=== PATIENT | female | born 1935 | race Caucasian/White ===

== ENCOUNTER → 2017-03-19 | Outpatient (CLI) | payer OTHER ==
[~2017-03-19] MED LIST: ACET-1256 PO; BALS1CAP2 PO; CHOL100010 PO; ENT3 PO; ESCI1TAB10 PO; GLUC10007 PO; MEMA10TA PO; METR0.754 TOP; MULTTAB58 PO; PRD/25 PO; SODI
== END | disposition home or self-care (01) ==
LOC: C.LABSPEC 10:22
PROVIDERS: ATTEND Nurse Practitioner
DX: R11.2 Nausea with vomiting, unspecified (principal)

== ENCOUNTER → 2017-05-14 | Outpatient (CLI) | payer OTHER ==
[2017-05-15 08:53] LABS: URINE APPEARANCE CLEAR (CLEAR); URINE BILIRUBIN NEG (NEG); URINE COLOR YELLOW; URINE EPITHELIAL CELL AUTO 0-5 /lpf (0-5); URINE NITRITE NEG (NEG); URINE PH 7.5 (4.5-7.5); URINE SPECIFIC GRAVITY 1.008 (1.000-1.030); UROBILINOGEN NEG (NEG)
[2017-05-15 08:55] LABS: MANUAL MICROSCOPIC REQUIRED? NO; REVIEW REQ? NO
== END | disposition home or self-care (01) ==
LOC: C.LABSPEC 10:00
PROVIDERS: ATTEND Nurse Practitioner
DX: R82.99 Other abnormal findings in urine (principal)

== ENCOUNTER 2018-01-26 19:13 | Emergency (ER) | payer OTHER ==
[2018-01-26 19:26] VITALS: TEMP 36.8
[2018-01-26] MEDS ORDERED: SODIUM CHLORIDE 0.9% 250ML 250 ML IV STA (19:28)
[2018-01-26] MEDS ORDERED: ONDANSETRON INJ 2 MG/ML 2 ML VIAL IV STA (19:28)
[2018-01-26] MEDS ORDERED: SODIUM CHLORIDE 0.9% 1000ML 1,000 ML IV STA (19:28)
--- NOTE | 2018-01-26 19:29 | EMERGENCY ROOM VISIT NOTE ---
History Report prepared by Artis: Adonay Hu Under the Supervision of: Dr. Rain Auguste M.D. First contact with patient: 19:19 Chief Complaint: VOMITING Stated Complaint: NAUSEA, VOMITING, DIARRHEA History of Present Illness The patient is an 82 year old female who presents to the Emergency Room with complaints of intermittent vomiting beginning a few weeks ago. Nursing staff states the patient came here from [facility]. They report the patient has had intermittent nausea, ? report of vomiting and diarrhea as well. Nursing staff notes the patient would not take her medications this morning. They state the patient has a history of dementia, ulcerative colitis, and UTIs. Per , he was notified of med administration difficulties and diarrhea today. No r/o vomiting to his knowledge. HPI is limited secondary to the patient's history of dementia. Source of History: nursing staff History Limited By: dementia Review of Systems ROS is limited secondary to the patient's history of dementia. Past Medical & Surgical Medical Problems: (1) Chronic diarrhea of unknown origin (2) Colonoscopy (3) Dementia (4) Gastroesophageal reflux disease (5) Osteoporosis (6) Stomach problems (7) TUBAL LIGATION STATUS Family History Cancer Heart disease Social History Smoking Status: Unknown if Ever Smoked Alcohol Use: none Drug Use: none Marital Status: Housing Status: lives with family Occupation Status: retired Current/Historical Medications Scheduled Balsalazide Disodium (Colazal), 2,250 MG PO TID Budesonide (Entocort Ec), 3 MG PO TID Calcium Carbonate-Vitamin D (Calcium + D), 1 TAB PO DAILY Cholecalciferol (Vitamin D), 1,000 UNIT PO QAM Escitalopram Oxalate (Lexapro), 20 MG PO QAM Glucosamine Sulfate (Glucosamine), 1,500 MG PO QAM Memantine Hcl (Namenda), 10 MG PO BID Metronidazole (Topical) (Metrocream), 1 APPLN TOP DAILY Multiple Vitamin (Multivitamin), 1 TAB PO DAILY Prednisone (Prednisone), 2.5 MG PO DAILY Sodium Fluoride-Potassium Nitr (Prevident 5000 Sensitive), 1 APPLN BID Tramadol (Ultram), 50 MG PO BID Scheduled PRN Acetaminophen (Tylenol), 1,000 MG PO Q4H PRN for Pain Ondansetron Hcl (Zofran), 4 MG PO Q6H PRN for Nausea Allergies Coded Allergies: Ciprofloxacin (Verified Allergy, Unknown, ., 08/16/16) Physical Exam Vital Signs Date Time Temp Pulse Resp B/P (MAP) Pulse Ox O2 Delivery O2 Flow Rate FiO2 01/26/18 23:50 78 18 92 01/26/18 22:10 93 Oxymask 3.0 01/26/18 22:07 69 20 131/55 86 Room Air 01/26/18 21:26 71 01/26/18 21:23 73 18 129/59 94 Room Air 01/26/18 19:26 36.8 74 20 143/71 93 Room Air Physical Exam Vital signs reviewed. General: Elderly, chronically ill-appearing 82 year old female, in no significant distress. HEENT: No scleral icterus, PERRLA, neck supple. Atraumatic. Cardiovascular: Regular rate and rhythm, no extra sounds. Pulmonary: Clear to auscultation bilaterally, normal work of breathing. Abdomen: Soft, nontender, nondistended, positive bowel sounds. Musculoskeletal: Atraumatic, no peripheral edema. Neurologic: Patient awake, speech is incoherent, minimally compliant with exam. Skin: Warm, dry, no rash Medical Decision & Procedures ER Provider Diagnostic Interpretation: Radiology results as stated below per my review and radiologist interpretation: CHEST ONE VIEW PORTABLE CLINICAL HISTORY: vomiting, diarrhea COMPARISON STUDY: Chest radiograph August 16, 2016. FINDINGS: Apparent hazy left basilar opacity is likely artifactual. This likely reflects a hypoventilatory study. No lobar consolidation is present and there is no evidence for pulmonary edema. Moderate enlargement of the cardiac silhouette is noted. IMPRESSION: Mild left basilar opacity. Artifact is favored. Electronically signed by: Ezio Fitch M.D. 01/26/2018 7:48 PM Dictated Date/Time: 01/26/2018 7:[address] OF THE ABDOMEN AND PELVIS WITH CONTRAST CLINICAL HISTORY: Ulcerative colitis. Vomiting and diarrhea. COMPARISON STUDY: Right upper quadrant ultrasound June 18, 2010. TECHNIQUE: Following IV administration of 90 mL of Optiray-320, axial images of the abdomen and pelvis were obtained from the lung bases to the proximal femurs. Images were reviewed in the axial, sagittal, and coronal planes. IV contrast was administered without complication. A dose lowering technique was utilized adhering to the principles of ALARA. CT DOSE: 717.48 mGy.cm FINDINGS: Visualized portions of the lower chest demonstrate moderate cardiomegaly and a moderate sized hiatal hernia. The liver, spleen, adrenal glands, pancreas and right kidney are unremarkable. There is a suspected 7 mm cyst within the upper pole of the left kidney. There is no peripancreatic or pericholecystic infiltration. There is no biliary or pancreatic ductal dilatation. Colonic diverticulosis is noted without evidence for acute diverticulitis. Sensitivity for detection mucosal lesions is diminished given CT technique. There is no lymphadenopathy. No suspicious osseous lesions are present. IMPRESSION: 1. No acute process within the abdomen or pelvis. 2. Chronic diverticulosis without evidence for acute diverticulitis. 3. Hiatal hernia. Electronically signed by: Ezio Fitch M.D. 01/26/2018 9:17 PM Dictated Date/Time: 01/26/2018 9:08 PM Laboratory Results 01/26/18 19:50 Red Blood Count 4.44, Mean Corpuscular Volume 95.7, Mean Corpuscular Hemoglobin 30.6, Mean Corpuscular Hemoglobin Concent 32.0, Mean Platelet Volume 11.7, Neutrophils (%) (Auto) 60.6, Lymphocytes (%) (Auto) 32.9, Monocytes (%) (Auto) 6.3, Eosinophils (%) (Auto) 0.0, Basophils (%) (Auto) 0.0, Neutrophils # (Auto) 2.60, Lymphocytes # (Auto) 1.41, Monocytes # (Auto) 0.27, Eosinophils # (Auto) 0.00, Basophils # (Auto) 0.00 01/26/18 19:50 Test 01/26/18 19:50 01/26/18 20:47 White Blood Count 4.29 K/uL (4.8-10.8) Red Blood Count 4.44 M/uL (4.2-5.4) Hemoglobin 13.6 g/dL (12.0-16.0) Hematocrit 42.5 % (37-47) Mean Corpuscular Volume 95.7 fL (80-100) Mean Corpuscular Hemoglobin 30.6 pg (25-34) Mean Corpuscular Hemoglobin Concent 32.0 g/dl (32-36) Platelet Count 152 K/uL (130-400) Mean Platelet Volume 11.7 fL (7.4-10.4) Neutrophils (%) (Auto) 60.6 % Lymphocytes (%) (Auto) 32.9 % Monocytes (%) (Auto) 6.3 % Eosinophils (%) (Auto) 0.0 % Basophils (%) (Auto) 0.0 % Neutrophils # (Auto) 2.60 K/uL (1.4-6.5) Lymphocytes # (Auto) 1.41 K/uL (1.2-3.4) Monocytes # (Auto) 0.27 K/uL (0.11-0.59) Eosinophils # (Auto) 0.00 K/uL (0-0.5) Basophils # (Auto) 0.00 K/uL (0-0.2) RDW Standard Deviation 51.0 fL (36.4-46.3) RDW Coefficient of Variation 14.3 % (11.5-14.5) Immature Granulocyte % (Auto) 0.2 % Immature Granulocyte # (Auto) 0.01 K/uL (0.00-0.02) Nucleated RBC Absolute Count (auto) 0.03 K/uL (0-0) Nucleated Red Blood Cells % 0.7 % Anion Gap 3.0 mmol/L (3-11) Estimated GFR () 84.1 Estimated GFR (Non- 72.5 BUN/Creatinine Ratio 15.0 (10-20) Calcium Level 8.5 mg/dl (8.5-10.1) Magnesium Level 2.2 mg/dl (1.8-2.4) Total Bilirubin 0.6 mg/dl (0.2-1) Direct Bilirubin 0.1 mg/dl (0-0.2) Aspartate Amino Transf (AST/SGOT) 30 U/L (15-37) Alanine Aminotransferase (ALT/SGPT) 18 U/L (12-78) Alkaline Phosphatase 73 U/L (45-117) Total Protein 6.6 gm/dl (6.4-8.2) Albumin 2.8 gm/dl (3.4-5.0) Lipase 223 U/L (73-393) Urine Color DK YELLOW Urine Appearance CLOUDY (CLEAR) Urine pH 5.5 (4.5-7.5) Urine Specific [place] 1.035 (1.000-1.030) Urine Protein TRACE (NEG) Urine Glucose (UA) NEG (NEG) Urine Ketones TRACE (NEG) Urine Occult Blood NEG (NEG) Urine Nitrite NEG (NEG) Urine Bilirubin NEG (NEG) Urine Urobilinogen NEG (NEG) Urine Leukocyte Esterase SMALL (NEG) Urine WBC (Auto) >30 /hpf (0-5) Urine RBC (Auto) 5-10 /hpf (0-4) Urine Hyaline Casts (Auto) 10-30 /lpf (0-5) Urine Epithelial Cells (Auto) 20-30 /lpf (0-5) Urine Bacteria (Auto) 3+ (NEG) Urine Mucus PRESENT (NONE PRSENT) Laboratory results per my review. Medications Administered Medications (Trade) Dose Ordered Sig/Chivo Route Start Time Stop Time Status Last Admin Dose Admin Sodium Chloride 250 ml @ 999 mls/hr Q16M STAT IV 01/26/18 19:28 01/26/18 19:43 DC 01/26/18 20:00 999 MLS/HR Sodium Chloride 1,000 ml @ 125 mls/hr Q8H STAT IV 01/26/18 19:28 01/27/18 00:49 DC 01/26/18 20:00 125 MLS/HR Ondansetron HCl (Zofran Inj) 4 mg NOW STAT IV 01/26/18 19:28 01/26/18 19:31 DC 01/26/18 20:05 4 MG Ceftriaxone Sodium (Rocephin Inj) 1 gm NOW STAT IV 01/26/18 21:41 01/26/18 21:42 DC 01/26/18 22:06 1 GM ED Course 1924: Past medical records reviewed. The patient was evaluated in room B11B. A complete history and physical examination was performed. 1927: Ordered Ondansetron HCl 4mg IV, Sodium Chloride 1000 ml @ 125 mls/hr IV, Sodium Chloride 250 ml @ 999 mls/hr IV 2007: I discussed the patient's case with the at bedside. He states Dr. Eaton has had the patient on multiple medications for ulcerative colitis and the nurses have not been making her take the medication. He denies vomiting and notes she has had diarrhea. 2140: Ordered Ceftriaxone Sodium 1gm IV 2253: Upon reevaluation, the patient appeared to have improvement of her symptoms. I discussed findings with the . He verbalized agreement of the treatment plan. The patient was discharged to [facility]. Medical Decision The patient is an 82 year old female who presents to the ED with complaints of vomiting. Differentials include exacerbation of UC, C-diff colitis, viral illness, medication noncompliant, GI bleed, and food borne illness. This patient was evaluated and appeared to be in no significant distress. Patient has advanced dementia and is difficult to obtain history from. Nursing reports from [facility] complaining of vomiting and diarrhea, denies any vomiting to his knowledge. Patient apparently has not been taking her medications for UC. Has been states she has had significant difficulties with ulcerative colitis flares in the past. The patient was in the emergency department for several hours. There is no stool sample obtained. She is normally incontinent and she was checked several times. A catheterized urine specimen is indicative of infection, which is not surprising given her diarrhea. Laboratory work reveals a mild leukopenia and hypokalemia. Patient was given 1 g of IV ceftriaxone. She did receive IV hydration. Recommendations for further IM ceftriaxone were given to the custodial staff as the patient has not been compliant with oral medication administration. A stool sample should be obtained when able and sent for culture/C. difficile. Patient will be discharged back to [facility] for further care. Transportation arrangements have been made by case management. is aware of the plan and agrees. Medication Reconcilliation Current Medication List: was personally reviewed by me Blood Pressure Screening Patient's blood pressure: Normal blood pressure Blood pressure disposition: Did not require urgent referral Impression Primary Impression: UTI (urinary tract infection) Additional Impression: Diarrhea Scribe Attestation The scribe's documentation has been prepared under my direction and personally reviewed by me in its entirety. I confirm that the note above accurately reflects all work, treatment, procedures, and medical decision making performed by me. Departure Information Dispostion Other ([facility]) Referrals Alfreda Logan, C.R.N.P. (PCP) Forms HOME CARE DOCUMENTATION FORM, IMPORTANT VISIT INFORMATION Patient Instructions My [facility] Additional Instructions Diagnosis: UTI, diarrhea Encourage daily medications. Encourage oral fluids. Pt was given ceftriaxone 1 gm in ED, would recommend additional ceftriaxone tomorrow afternoon (1 gm IM) until urine cultures return. Consider sending a stool sample as we were unable to obtain one in the ED. Return to the ED for worsening of symptoms or any medical concerns. Problem Qualifiers
[2018-01-26] MEDS ORDERED: OPTIRAY 320 IV PRN (19:45)
--- NOTE | 2018-01-26 19:50 | DIAGNOSTIC IMAGING REPORT ---
CHEST ONE VIEW PORTABLE CLINICAL HISTORY: vomiting, diarrhea COMPARISON STUDY: Chest radiograph August 16, 2016. FINDINGS: Apparent hazy left basilar opacity is likely artifactual. This likely reflects a hypoventilatory study. No lobar consolidation is present and there is no evidence for pulmonary edema. Moderate enlargement of the cardiac silhouette is noted. IMPRESSION: Mild left basilar opacity. Artifact is favored. Electronically signed by: Ezio Fitch M.D. 01/26/2018 7:48 PM Dictated Date/Time: 01/26/2018 7:47 PM
[2018-01-26 20:05] LABS: HEMATOCRIT 42.5 % (37-47); HEMOGLOBIN 13.6 g/dL (12.0-16.0); IG# 0.01 K/uL (0.00-0.02); LYMPH % 32.9 %; LYMPH ABS # 1.41 K/uL (1.2-3.4); MEAN CELL VOLUME 95.7 fL (80-100); MEAN CORPUSCULAR HEMOGLOBIN 30.6 pg (25-34); MEAN PLATELET VOLUME 11.7 fL (7.4-10.4); MONO % 6.3 %; MONO ABS # 0.27 K/uL (0.11-0.59); NEUT % 60.6 %; NUCLEATED RED BLOOD CELL ABS 0.03 K/uL (0-0); PLATELET COUNT 152 K/uL (130-400); RED CELL DISTRIBUTION WIDTH CV 14.3 % (11.5-14.5); WHITE BLOOD COUNT 4.29 K/uL (4.8-10.8)
[2018-01-26 20:24] LABS: ALBUMIN 2.8 gm/dl (3.4-5.0); ALT/SGPT 18 U/L (12-78); AST/SGOT 30 U/L (15-37); BLOOD UREA NITROGEN 11 mg/dl (7-18); CALCIUM 8.5 mg/dl (8.5-10.1); CARBON DIOXIDE 29 mmol/L (21-32); CREATININE 0.76 mg/dl (0.60-1.20); GLUCOSE 99 mg/dl (70-99); LIPASE 223 U/L (73-393); POTASSIUM 3.1 mmol/L (3.5-5.1); SODIUM 139 mmol/L (136-145)
[2018-01-26 20:26] LABS: ALKALINE PHOSPHATASE 73 U/L (45-117); TOTAL PROTEIN 6.6 gm/dl (6.4-8.2)
--- NOTE | 2018-01-26 21:19 | DIAGNOSTIC IMAGING REPORT ---
CT OF THE ABDOMEN AND PELVIS WITH CONTRAST CLINICAL HISTORY: Ulcerative colitis. Vomiting and diarrhea. COMPARISON STUDY: Right upper quadrant ultrasound June 18, 2010. TECHNIQUE: Following IV administration of 90 mL of Optiray-320, axial images of the abdomen and pelvis were obtained from the lung bases to the proximal femurs. Images were reviewed in the axial, sagittal, and coronal planes. IV contrast was administered without complication. A dose lowering technique was utilized adhering to the principles of ALARA. CT DOSE: 717.48 mGy.cm FINDINGS: Visualized portions of the lower chest demonstrate moderate cardiomegaly and a moderate sized hiatal hernia. The liver, spleen, adrenal glands, pancreas and right kidney are unremarkable. There is a suspected 7 mm cyst within the upper pole of the left kidney. There is no peripancreatic or pericholecystic infiltration. There is no biliary or pancreatic ductal dilatation. Colonic diverticulosis is noted without evidence for acute diverticulitis. Sensitivity for detection mucosal lesions is diminished given CT technique. There is no lymphadenopathy. No suspicious osseous lesions are present. IMPRESSION: 1. No acute process within the abdomen or pelvis. 2. Chronic diverticulosis without evidence for acute diverticulitis. 3. Hiatal hernia. Electronically signed by: Ezio Fitch M.D. 01/26/2018 9:17 PM Dictated Date/Time: 01/26/2018 9:08 PM
[2018-01-26] MEDS ORDERED: CEFTRIAXONE SOD INJ 1 GM ADDVIAL IV STA (21:41)
[2018-01-26 22:07] VITALS: BP 131/55
[2018-01-26 22:10] VITALS: O2SAT 93
[2018-01-26] MEDS ORDERED: BUDE1CAP6 PO (22:32)
[2018-01-26] MEDS ORDERED: CALC600T9 PO (22:35)
[2018-01-26] MEDS ORDERED: TRAM-10 PO (22:41)
[2018-01-26] MEDS ORDERED: ONDA4TAB46 PO (22:48)
[2018-01-26 23:50] VITALS: PULSE 78; O2SAT 92
--- NOTE | 2018-01-28 14:47 | Pharmacy Progress Note ---
ED Pharmacist Culture FollowUp Date of Service: Jan 28, 2018. Patient with a lam sensitive proteus growing in the urine. She received one dose of IV rocephin while in the ED pending culture results. I spoke directly to the patient's outpatient provider, Cecelia Walden, who stated she would review the culture and prescribe appropriate antibiotics as necessary. I faxed a copy of the results to the patient's PCP, Cecelia Walden ([phone]) for review.
== END 2018-01-26 23:50 | disposition home or self-care (01) ==
LOC: EDBD 19:13 → C.EDB 19:17
DX: N39.0 Urinary tract infection, site not specified (principal); R19.7 Diarrhea, unspecified; F03.90 Unspecified dementia, unspecified severity, without behavioral disturbance, psychotic disturbance, mood disturbance, and anxiety; K51.90 Ulcerative colitis, unspecified, without complications; K21.9 Gastro-esophageal reflux disease without esophagitis; M81.0 Age-related osteoporosis without current pathological fracture; Z79.899 Other long term (current) drug therapy; Z79.52 Long term (current) use of systemic steroids; Z88.1 Allergy status to other antibiotic agents; Z82.49 Family history of ischemic heart disease and other diseases of the circulatory system

== ENCOUNTER → 2018-04-23 | Outpatient (CLI) | payer OTHER ==
[~2018-04-23] MED LIST changes: +BUDE1CAP6 PO; +CALC600T9 PO; -ENT3 PO; +ONDA4TAB46 PO; +TRAM-10 PO
[2018-04-23 10:55] LABS: BLOOD UREA NITROGEN 17 mg/dl (7-18); CALCIUM 8.5 mg/dl (8.5-10.1); CARBON DIOXIDE 32 mmol/L (21-32); CREATININE 0.78 mg/dl (0.60-1.20); GLUCOSE 134 mg/dl (70-99); POTASSIUM 3.3 mmol/L (3.5-5.1); SODIUM 154 mmol/L (136-145)
== END | disposition home or self-care (01) ==
LOC: C.LABSPEC 15:14
PROVIDERS: ATTEND Physician Assistant Medical
DX: E87.0 Hyperosmolality and hypernatremia (principal)

== ENCOUNTER → 2018-05-15 | Outpatient (CLI) | payer OTHER ==
[2018-05-15 10:15] LABS: BLOOD UREA NITROGEN 14 mg/dl (7-18); CALCIUM 8.5 mg/dl (8.5-10.1); CARBON DIOXIDE 28 mmol/L (21-32); CREATININE 0.45 mg/dl (0.60-1.20); GLUCOSE 87 mg/dl (70-99); POTASSIUM 3.5 mmol/L (3.5-5.1); SODIUM 146 mmol/L (136-145)
== END ==
LOC: C.LABSPEC 10:38
PROVIDERS: ATTEND Family Medicine